=== PATIENT | male | born 1980 | race Caucasian/White ===

== ENCOUNTER 2025-01-24 15:05 | Outpatient (CLI) | payer BC, SELFPAY ==
--- NOTE | ~2025-01-24 | MR_ITS ---
MRI of the lumbar spine Clinical History: Back pain Technique: Axial T2-weighted images, and sagittal T1-weighted, T2-weighted, and STIR images were acqu ired. Findings: There is posterior and interbody fusion from L4 through S1, bilateral rods and transpedicul ar screws present, as well as disc fusion devices at the L4-L5 and L5-S1 disc spaces. There is probab le minimal grade 1 retrolisthesis of L3 over L4. No suspicious bone marrow signal reality seen. At L1-L2, there is no disc bulge or herniation. There is moderate to advanced facet hypertrophy. No s [place] canal stenosis or neural foraminal narrowing. At L2-L3, there is no disc bulge or herniation. There is moderate facet arthropathy. No central canal stenosis or neural foraminal narrowing. At L3-L4, there is moderate to advanced degenerative disc narrowing. There is diffuse disc bulge with moderate facet arthropathy, resulting in severe spinal canal stenosis/thecal sac compression. There is moderate to advanced bilateral neural foraminal narrowing, right worse than left. At L4-L5, there is no disc bulge or herniation. No spinal canal stenosis or definite neural foraminal narrowing. At L5-S1, there is no disc bulge or herniation. There is advanced facet arthropathy. No central canal stenosis or definite neural foraminal narrowing. Paravertebral soft tissues are unremarkable. Impression: Severe degenerative spondylosis at L3-L4, as detailed above, with minimal grade 1 retrolisthesis at t his level. Posterior and interbody fusion from L4 through S1, as detailed above. Reviewed, dictated and finalized at [facility]. Impression: Severe degenerative spondylosis at L3-L4, as detailed above, with minimal grade 1 retrolisthesis at this level. Posterior and interbody fusion from L4 through S1, as detailed above.
== END 2025-01-24 15:06 | disposition home or self-care (01) ==
LOC: MICIMG 15:08
PROVIDERS: PCP Nurse Practitioner Family; Visit Provider Nurse Practitioner Family
DX: M51.369 Other intervertebral disc degeneration, lumbar region without mention of lumbar back pain or lower extremity pain (principal); Z98.1 Arthrodesis status
CPT/HCPCS: 72148